=== PATIENT | male | born 1965 | race Caucasian/White ===

== ENCOUNTER 2021-09-10 22:08 | Emergency (ER) | payer OTHER, SELFPAY ==
--- NOTE | ~2021-09-10 | CT_ITS ---
EXAMINATION: CT HEAD WITHOUT CONTRAST CLINICAL INFORMATION: Trauma. COMPARISON: None TECHNIQUE: Contiguous axial imaging was performed from the skull base to vertex without intravenous administration of contrast. This CT examination was performed using dose optimization techniques as appropriate, variously including the following: *Automated exposure control *Adjustment of mA and/or kV according to patient size (this includes techniques or standardized protocols for targeted exams where dose is matched to indication/reason for exam; i.e. extremities or head) *Use of iterative reconstruction technique DLP: 690 mGy-cm FINDINGS: There is no evidence of acute intracranial hemorrhage or edematous territorial infarction. There is no abnormal attenuation within the brain parenchyma. Warner-white matter differentiation is preserved. The ventricles are normal in size and configuration. No evidence for obstructive hydrocephalus. No abnormal mass effect or midline shift. No extra-axial fluid collections. No acute soft tissue or osseous abnormalities. The mastoid air cells and paranasal sinuses are clear. CT/CT head/brain wo con IMPRESSION: No evidence of acute intracranial hemorrhage or edematous territorial infarction.
[2021-09-10 22:26] VITALS: BP 131/79; PULSE 90; RESP 16; TEMP 36.4; O2SAT 98; BMI 24.0
--- NOTE | 2021-09-10 22:31 | ED.FALL ---
HPI - Fall General Chief Complaint: Fall Stated Complaint: fell down rt ear laceration Source: patient and family Mode of arrival: ambulatory Limitations: no limitations History of Present Illness HPI Narrative: 56-year-old male presents with head injury after trip and fall. States that he hit the right side of his head and ear onto the edge of a plow. complaint: fall Onset (ago): hour(s) (Within the hour of arrival) Fall from: standing Fall witnessed: no Place fall occurred: home Loss of consciousness: none Prolonged down time: no Symptoms prior to fall: none Context: tripped/slipped Location of injury: head Severity: moderate Severity scale (1-10): 7 Quality: aching Associated symptoms (after fall): headache Related Data Previous Rx's Medication Instructions Recorded amoxicillin 875 mg-potassium 1 tab PO Q12H 7 Days #14 tab 09/11/21 clavulanate 125 mg tablet (Augmentin) Allergies Allergy/AdvReac Type Severity Reaction Status Date / Time No Known Allergies Allergy Unverified 09/10/21 22:29 Review of Systems Review of Systems: Constitutional: No Fever, No Chills ENT/Mouth: Positive right Ear Pain, No Hoarseness, No sore throat Eyes: No Eye Pain, No Swelling, No Redness, No Foreign Body Cardiovascular: No Chest Pain, No SOB Respiratory: No Cough, No Dyspnea Gastrointestinal: No Nausea, No Vomiting, No Diarrhea, No abdominal Pain Genitourinary: No Dysuria, No Hematuria Musculoskeletal: positive joint pain, No Myalgias, No Joint Swelling Skin: Positive right ear lacerations, No rash Neuro: No Weakness, No Numbness, No Paresthesias, No Loss of Consciousness, No Dizziness, positive Headache Psych: No Anxiety/Panic, No Depression Heme/Lymph: no easy bruising, no Lymphadenopathy Endocrine: No Polyuria, No Polydipsia Yes all other systems are reviewed and are negative [facility] Past Medical History Attestation statement: The following information was validated with the patient. Source: old records reviewed Social History Social History Advance Directives: No Advance Directives Information Provided: Yes Physical Exam Vital Signs: Vital Signs: Last Vital Signs Temp 97.6 F 09/10/21 22:26 Pulse 90 09/10/21 22:26 Resp 16 09/10/21 22:26 BP 131/79 09/10/21 22:26 Pulse Ox 98 09/10/21 22:26 BMI result Body Mass Index 24.0 Appearance: Alert. Oriented X3. No acute distress. Head: Normal external exam. Normocephalic. Atraumatic. No Landeros signs noted. No raccoon eyes noted Eyes: PERRLA. EOMI. Conjunctiva and sclera normal. Eyelids normal. ENT: Laceration to the right ear lobe, TM's Normal. Pharynx normal. Uvula midline. Moist mucous membranes. No trismus noted. No drooling noted. No muffled voice noted. Neck: Normal inspection. Neck supple. No adenopathy. No meningeal signs. No neck mass noted. No vertebral tenderness or step-offs. CVS: Normal heart rate and rhythm. Heart sound normal. No murmurs noted. Pulses equal to all extremities. Respiratory: No respiratory distress. Painless inspiration. Breath sounds normal. No wheezes/rales/rhonchi noted. Chest nontender. No accessory muscle usage noted or decreased air movement noted. Abdomen: Soft and nontender. Bowel sounds normal in all 4 quadrants. No distention noted. No organomegaly noted. No visible injury noted. Back: No CVA tenderness. Full range of motion noted. Skin: Skin warm and dry. Normal skin color. Normal skin turgor. No rashes/lesions/lacerations noted. Extremities: No lower extremity edema. Extremities exhibit normal range of motion. Extremities nontender. Neuro: cranial nerves 2-12 intact, no focal neural deficits, strength 5/5 to all extremities, No motor deficit. No sensory deficit. Course Course Course Narrative: 56-year-old male presents after trip and fall with head injury and right ear laceration. Will update Tdap vaccine. Cranial nerves 2-12 intact, no focal neural deficits. Patient is complaining of a headache. Will order CT scan of head. 11:41 p.m. prepped and draped in sterile fashion. Irrigated with copious amounts of normal saline. Please refer to procedure note for full details. 12:10 a.m.. Right ear continues with brisk capillary refill. CT scan negative for acute findings requiring emergent intervention. of care is to discharge with post concussive protocol. Patient verbalizes understanding of and agrees to plan of care discharge home. Procedures Laceration Laceration 1: Site: other (Right ear) Side (If applicable): right Size (cm): 6 Description: linear Depth: simple, single layer Local Anesthetic: lidocaine 2% Amount of anesthesia used (mL): 5 Pre-repair: wound explored and irrigated extensively Skin layer closed with: nylon Size (cm): 5-0 Number of sutures: 16 Technique: simple, interrupted MDM - Fall MDM Narrative Medical decision making narrative: Laceration Differential Diagnosis Differential diagnosis: Likely concussion without loss of consciousness Medical Records Attestation: I reviewed the patient's medical records. Imaging Data CT head: Attestation: I personally reviewed and interpreted this imaging study as follows: Radiologist's impression: EXAMINATION: CT HEAD WITHOUT CONTRAST CLINICAL INFORMATION: Trauma.? COMPARISON: None TECHNIQUE: Contiguous axial imaging was performed from the skull base to vertex without intravenous administration of contrast. This CT examination was performed using dose optimization techniques as appropriate, variously including the following: *Automated exposure control *Adjustment of mA and/or kV according to patient size (this includes techniques or standardized protocols for targeted exams where dose is matched to indication/reason for exam; i.e. extremities or head) *Use of iterative reconstruction technique DLP: 690 mGy-cm FINDINGS: There is no evidence of acute intracranial hemorrhage or edematous territorial infarction. There is no abnormal attenuation within the brain parenchyma. Warner-white matter differentiation is preserved. The ventricles are normal in size and configuration. No evidence for obstructive hydrocephalus. No abnormal mass effect or midline shift. No extra-axial fluid collections. No acute soft tissue or osseous abnormalities. The mastoid air cells and paranasal sinuses are clear. ? CT/CT head/brain wo con IMPRESSION: No evidence of acute intracranial hemorrhage or edematous territorial infarction. Discharge Plan Discharge Clinical Impression: Laceration of ear, complex Qualifiers: Encounter type: initial encounter Laterality: right Qualified Code(s): S01.311A - Laceration without foreign body of right ear, initial encounter Head trauma Qualifiers: Encounter type: initial encounter Qualified Code(s): S09.90XA - Unspecified injury of head, initial encounter Concussion Qualifiers: Encounter type: initial encounter Loss of consciousness presence/duration: without LOC Qualified Code(s): S06.0X0A - Concussion without loss of consciousness, initial encounter Patient Disposition: Home, Self-Care Instructions: Laceration (ED), Concussion (ED), Head Injury (ED), Post Concussion Syndrome (ED) Additional Instructions: You were evaluated for head injury with laceration to the right ear. Please follow-up with primary care physician this week as for your laceration is white extensive. We placed a 16 sutures. Please return in 7 days to have sutures removed. Please follow concussive protocol. Use Tylenol as needed for pain management. Please take Augmentin twice a day for the next 7 days. This medication is to prevent infection. We updated your Tdap vaccine today. Thank you for choosing this emergency department for evaluation. Please follow-up with primary care physician as needed. Return to the emergency department for any new, concerning, or worsening symptoms. Prescriptions: New amoxicillin-pot clavulanate [Augmentin] 875-125 mg tablet 1 tab PO Q12H 7 Days Qty: 14 RF: 0
--- NOTE | 2021-09-10 22:49 | PC.NURSE ---
Pt returns from CT. mechanical assembly technician at bedside cleaning wound to right ear. Pt medicated with Tetanus per DEC. Awaiting CT results.
[2021-09-10] MEDS: Diphth,Pertus(ACell),Tet Adult 0.5 ML SYRINGE IM (22:50)
[2021-09-10] MEDS: Lidocaine HCl 2 % MPF 5 ML VIAL SUBCUT (23:15)
--- NOTE | 2021-09-10 23:46 | PC.NURSE ---
CRIMINAL JUSTICE INSTRUCTOR and organic preparation technician at bedside for wound repair.
[2021-09-11] MEDS: Amoxicillin/Potassium Clav 875 MG TABLET PO (00:17)
== END 2021-09-11 00:21 | disposition home or self-care (01) ==
PROVIDERS: Emergency Provider Emergency Medicine; PCP Internal Medicine
DX: S01.311A Laceration without foreign body of right ear, initial encounter (principal); S06.0X0A Concussion without loss of consciousness, initial encounter; W01.0XXA Fall on same level from slipping, tripping and stumbling without subsequent striking against object, initial encounter; Y93.9 Activity, unspecified; Y92.009 Unspecified place in unspecified non-institutional (private) residence as the place of occurrence of the external cause; Y99.9 Unspecified external cause status
CPT/HCPCS: 12014; 70450; 90471; 90715; 99283; 99284

== ENCOUNTER 2024-05-07 12:07 | Emergency (ER) | payer OTHER, SELFPAY ==
--- NOTE | ~2024-05-07 | XR_ITS ---
EXAMINATION: XR KNEE, LEFT CLINICAL INFORMATION: Left knee pain and swelling COMPARISON: None available. TECHNIQUE: Four views of the left knee. FINDINGS: BONES: Chronic healed distal left femoral shaft fracture with marked posterior medial bulging cortical thickening, internal fixation with lateral L shaped metallic plate and multiple cortical screws is seen. Left patellar articular border osteophytosis is present. There is no focal bone destruction or periosteal reaction seen. JOINTS: Alignment of joints is normal. There is marked decrease in medial compartment left tibiofemoral joint space. SOFT TISSUE: Left suprapatellar fat pad shows bulging increase in density. Left lateral meniscal chondrocalcinosis is seen. No radiopaque foreign body or abnormal air collection is seen. XR/XR knee LT 4V IMPRESSION: 1. Chronic healed distal left femoral shaft fracture with internal fixation. 2. Advanced Left patellofemoral and medial compartment and left patellofemoral joint osteoarthritis. 3. Left lateral meniscal chondrocalcinosis, compatible with advanced arthritis, hyperparathyroidism or calcium pyrophosphate deposition disease (pseudogout). 4. Left knee effusion is present.
[2024-05-07 13:08] VITALS: BP 165/89; PULSE 87; RESP 16; TEMP 37; O2SAT 98; BMI 24.0
--- NOTE | 2024-05-07 13:10 | ED.EXTPRO ---
HPI - Extremity Problem General Chief complaint: Extremity Problem Stated complaint: Swelling L knee Time Seen by Provider: 05/07/24 17:37 Source: patient Mode of arrival: ambulatory Limitations: no limitations History of Present Illness ED Provider: Elvia BA HPI Narrative: 58-year-old male presents with chronic left knee swelling acutely worsening over the past few days, he reports that he has had intermittent swelling for years this started after a bad accident, he is seen by [facility] however he is unable to get into see them until May, he reports that typically they drain his knee and place a cortisone shot and he is hoping that we could do the same here. Denies fevers, chills, numbness, tingling, blunt trauma, nausea, vomiting, abdominal pain. Related Data Previous Rx's ?Medication ?Instructions ?Recorded amoxicillin 875 mg-potassium 1 tab PO Q12H 7 days #14 tabs 09/11/21 clavulanate 125 mg tablet (Augmentin) ketorolac 10 mg tablet 10 mg PO TID PRN pain 5 days #15 05/07/24 tabs Allergies Allergy/AdvReac Type Severity Reaction Status Date / Time No Known Allergies Allergy Verified 05/07/24 13:11 Review of Systems Review of Systems: Yes all other systems are reviewed and are negative PMFSH Past Medical History Attestation statement: The following information was validated with the patient. Source: old records reviewed and nursing notes reviewed Social History Social History Advance Directives: No Advance Directives Information Provided: No Physical Exam Vital Signs: Vital Signs: Last Vital Signs Temp 98.6 F 05/07/24 13:08 Pulse 87 05/07/24 13:08 Resp 16 05/07/24 13:08 BP 165/89 H 05/07/24 13:08 Pulse Ox 98 05/07/24 13:08 O2 Del Method Room Air 05/07/24 13:08 BMI result Body Mass Index 24.0 vss Appearance: Alert.? Oriented X3.? No acute distress.? Head: Normocephalic, atraumatic, no step-offs or deformities Eyes: Pupils equal, round and reactive to light.? ENT: Pharynx normal.? Neck: Normal inspection.? Neck supple.? CVS: Normal heart rate and rhythm.? Pulses normal.? Respiratory: No respiratory distress.? Breath sounds normal.? Abdomen: Soft and nontender.? Skin: Skin warm and dry.? Normal skin color.? Normal skin turgor.? Extremities: No lower extremity edema.? No calf ttp. 5/5 strength to bilateral upper and lower extremities + large L sided effusion overlying knee. 2+ dp,at,pt, popliteal pulses equal and b/l. Normal sensation distally. Neuro: Oriented X 3.? No motor deficit.? No sensory deficit. CN 2-12 intact Course Course Course Narrative: This is a Rapid Medical Examination (RME) performed by Adrian Shrestha PA-C in triage. Full HPI, ROS, assessment and treatment plan per primary provider in the Main ED. 58 yo male with history of left knee osteoarthritis in need of replacement (followed at [facility]) who presents to the ER for evaluation of acute on chronic left knee pain and swelling. Reports history of multiple arthocentesis in the past and cortisone injections, last was about 2 years ago. Left knee with significant swelling. Ambulatory w/ antalgic gait. Plan: XR knee Reevaluation(s) Reevaluation #1: Arthrocentesis was performed at the bedside by this JESENIA w/ supervision Dr. Henriquez, area was cleansed well with iodine, allowed to dry, a superior lateral approach was used for arthrocentesis, I did anesthetize the area with 1% lidocaine and, patient tolerated procedure well there was a total of 135 cc of straw-colored fluid. pressure applied after the procedure. No complicaitons. Blood loss <5 cc. No pain after patient feeling better. Frandy wrap applied for compression. Plan- follow up with [facility] Knee joint fluid sent for analysis Time: 18:40 Medical Decision Making Medical Decision Making [facility] Narrative: 1805 58 year old male presents w/ left knee pain and swelling for years worsening over the past few days. PE No lower extremity edema.? No calf ttp. 5/5 strength to bilateral upper and lower extremities + large L sided effusion overlying knee. 2+ dp,at,pt, popliteal pulses equal and b/l. Normal sensation distally. History and physical exam concerning for chronic left knee effusion acutely worsening this could be a gouty arthritis versus inflammatory arthritis. Unlikely traumatic bursitis, septic joint, no signs of neurovascular compromise or threat to limb. Plan imaging and arthrocentesis Differential Diagnosis Differential Diagnoses: The differential diagnosis associated with the presentation includes History and physical exam concerning for chronic left knee effusion acutely worsening this could be a gouty arthritis versus inflammatory arthritis. Unlikely traumatic bursitis, septic joint, no signs of neurovascular compromise or threat to limb. Admission/Observation Consideration of admission/observation: Escalation of care including admission/observation considered Possible Consult Healthcare Provider Management of the patient was discussed with: Air Brush Operator (Ortho ) Independent Interpretation I performed an independent interpretation of an: Plain X-Ray Procedures Joint Aspiration/Injection Joint Asp./Inject. 1: Time Out Performed: Yes Side of body: left Joint Aspirated: knee Ultrasound Guidance: No Skin Prep: Povidone-Iodine1% Local Anesthetic: lidocaine 1% Amount of anesthesia used (mL): 15 Needle Size Used: 18G Fluid Obtained: clear (straw ) Total fluid obtained (mL): 135 Patient Tolerated Procedure: well Complications: none Critical Care Time Critical Care Time Critical Care Time: Yes Total Critical Care Time: 35 Attestation: I attest to this time spent taking care of the patient, obtaining history, physical, reviewing labs, imaging, speaking to my attending, specialist or hospitalist. Discharge Plan Discharge Clinical Impression: Effusion, left knee Patient Disposition: Home, Self-Care Instructions: Swollen Knee Joint (ED), Swollen Joint (ED), Joint Aspiration (DC) Additional Instructions: Take your medications as prescribed. If you were prescribed antibiotics today, it is important that you take your medication to their entirety, do not skip any doses, do not finish them early. Follow-up with your primary care provider this week. Return to the emergency department with new or worsening symptoms. Such as fevers, chills, chest pain, shortness of breath, nausea, vomiting, dizziness, headache, vision changes, lethargy In case of emergency call 911 Toradol has been sent to your pharmacy, you tolerated this well in the department. Please take this as prescribed do not take this with ibuprofen, or other NSAIDs, do not mix this with alcohol. Side effects of this medication including increased risk for bleeding and possible kidney injury. Please call [facility] tomorrow to schedule an appointment as soon as possible. Prescriptions: New ketorolac 10 mg tablet 10 mg PO TID PRN (Reason: pain) 5 Days Qty: 15 0RF No Action amoxicillin-pot clavulanate [Augmentin] 875-125 mg tablet 1 tab PO Q12H 7 Days Qty: 14 0RF Referrals: Lindsay Galo MD [Primary Care Provider] - 2 days Stand Alone Forms: Work/School Release Print Language: South [place]
[2024-05-07] MEDS: Lidocaine HCl 1 % 20 ML VIAL SUBCUT (18:15)
[2024-05-07] MEDS: Ketorolac Tromethamine 30 MG/ML VIAL IM (18:37)
[2024-05-07] MEDS: Acetaminophen 325 MG TABLET 650 MG PO (18:55)
[2024-05-07 18:57] VITALS: BP 135/84; PULSE 83; RESP 20; TEMP 37.3; O2SAT 97
[2024-05-07 18:58] LABS: Source Synovial Fluid L knee
[2024-05-07 19:01] VITALS: BP 135/84; PULSE 83; RESP 18; TEMP 37.3; O2SAT 97
[2024-05-07 19:26] LABS: MN% 8.2 %; PMN% 91.8 %
[2024-05-07 19:36] LABS: BF Shift QC OK YES; Lymphocytes Synovial Fluid 5 %; Man Diluent Bkgrd OK YES; Monocytes Synovial Fluid 4 %; Neutrophils Synovial Fluid 91 %
[2024-05-09 15:25] LABS: Glucose Synovial Fluid 4
[2024-05-09 15:27] LABS: Total Protein Synovial Fluid 4.2
== END 2024-05-07 19:02 | disposition home or self-care (01) ==
PROVIDERS: Physician Assistant; Emergency Provider Emergency Medicine; PCP Internal Medicine
DX: M25.462 Effusion, left knee (principal); M25.562 Pain in left knee; Z79.899 Other long term (current) drug therapy
CPT/HCPCS: 20610; 73564; 82945; 84157; 87070; 87073; 87205; 89051; 89060; 96372; 99284; J1885

== ENCOUNTER 2024-08-01 05:32 | Emergency (ER) | payer OTHER, SELFPAY ==
--- NOTE | ~2024-08-01 | XR_ITS ---
EXAMINATION: XR CHEST CLINICAL INFORMATION: Cough. COMPARISON: None available. TECHNIQUE: Frontal view of the chest was obtained. FINDINGS: The cardiomediastinal silhouette is normal. There is no focal lung consolidation or pleural effusions. The bony structures and the soft tissues are unremarkable XR/XR chest 1V IMPRESSION: No acute cardiopulmonary process. Electronically signed by: Fish Chávez MD 08/01/2024 06:18 AM EDT RP
[2024-08-01 05:38] VITALS: BP 146/83; PULSE 91; RESP 15; TEMP 36.5; O2SAT 98; BMI 24.4
--- NOTE | 2024-08-01 05:54 | PC.NURSE ---
pt ambulated from waiting room with steady gait. pt aox4, vss, respirations even and unlabored. Pt reports acute onset of upper right back pain with radiating 'aching' down right arm x 1day. pt reports mowing his lawn yesterday with onset of pain shortly after. pt unable to perform shoulder ROM movements at this time d/t pain. pt reports pain with neck flexion and extension. pt at bedside.
[2024-08-01 06:30] LABS: MANUAL DIFF FLAG NO
[2024-08-01 06:35] LABS: Basophils Absolute Auto 0.1 X10*3/uL (0.0-0.2); Basophils Percent Auto 0.8 % (0-2); Eosinophils Absolute Auto 0.2 X10*3/uL (0.0-0.4); Hematocrit 41.1 % (42.0-52.0); Hemoglobin 14.6 g/dl (14.0-18.0); Imm Gran Abs Auto 0.02 X10*3/uL (0.00-0.03); Imm Gran Pct Auto 0.3 % (0.0-0.4); Lymphocytes Absolute Auto 1.5 X10*3/uL (1.2-4.9); Lymphocytes Percent Auto 19.8 % (20-40); Mean Corpuscular HGB Conc 35.5 g/dl (31.0-36.0); Mean Corpuscular Hemoglobin 30.5 pg (27.0-33.0); Mean Corpuscular Volume 85.8 fL (80.0-98.0); Mean Platelet Volume 10.1 fL (9.4-12.4); Monocytes Absolute Auto 0.7 X10*3/uL (0.1-1.2); Monocytes Percent Auto 9.6 % (2-11); Neutrophils Absolute Auto 5.2 x10*3/uL (2.0-8.3); Neutrophils Percent Auto 67.5 % (45-73); Platelet Count 165 X10*3/uL (160-400); Red Blood Count 4.79 X10*6/uL (4.60-5.80); Red Cell Distribution Width 12.1 % (11.0-16.0); White Blood Count 7.7 X10*3/uL (4.8-10.8)
--- NOTE | 2024-08-01 06:47 | ECG_ITS ---
Test Reason : BACK PAIN Blood Pressure : / mmHG Vent. Rate : 082 BPM Atrial Rate : 082 BPM P-R Int : 154 ms QRS Dur : 098 ms QT Int : 406 ms P-R-T Axes : 048 -37 031 degrees QTc Int : 474 ms Normal sinus rhythm Left axis deviation Possible Anterior infarct , age undetermined Abnormal ECG No previous ECGs available Referred By: Patsy Coreas Electronically Signed By:Qamar Urbina
[2024-08-01 06:51] VITALS: BP 145/84; PULSE 86; RESP 16; O2SAT 97
--- NOTE | 2024-08-01 06:51 | ED_ITS ---
HPI - General Adult General Chief complaint: General Medical Stated complaint: Back pain Time Seen by Provider: 08/01/24 06:32 Source: patient, RN notes reviewed and old records reviewed Mode of arrival: ambulatory History of Present Illness ED Provider: Patsy Coreas PA-C HPI narrative: 59-year-old male with no significant past medical history presenting to the ED complaining of right upper back/scapular pain radiating to right neck and RUE since yesterday. 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 Admits to taking p.o. ibuprofen and heat at home last night without relief. Also reports URI x few days with dry cough, cough exacerbating symptoms at present. Denies fever, chills, numbness, tingling, weakness, SOB, CP Related Data Previous Rx's ?Medication ?Instructions ?Recorded amoxicillin 875 mg-potassium 1 tab PO Q12H 7 days #14 tabs 09/11/21 clavulanate 125 mg tablet (Augmentin) ketorolac 10 mg tablet 10 mg PO TID PRN pain 5 days #15 05/07/24 tabs prednisone 50 mg tablet 50 mg PO DAILY 5 days #5 tabs 05/07/24 acetaminophen 500 mg tablet 500 mg PO Q6H PRN fever or pain 08/01/24 (Tylenol Extra Strength) #14 tabs cyclobenzaprine 10 mg tablet 10 mg PO TID PRN muscle spasm #14 08/01/24 tabs lidocaine 5 % topical patch 1 patch topical DAILY PRN pain #30 08/01/24 (Lidoderm) ea morphine 15 mg immediate release 15 mg PO Q6H PRN pain (scale score 08/01/24 tablet 7-10) 3 days #9 tabs naproxen 500 mg tablet 500 mg PO BID PRN pain 10 days #20 08/01/24 tabs Allergies Allergy/AdvReac Type Severity Reaction Status Date / Time No Known Allergies Allergy Verified 08/01/24 05:43 Review of Systems 2 Review of Systems: Yes all other systems are reviewed and are negative Constitutional: Constitutional: Reports as per [facility] Past Medical History Attestation statement: The following information was validated with the patient. Source: old records reviewed Social History Social History Alcohol intake: current Alcohol intake frequency: 0-2 drinks per day Alcohol type: beer Smoked in Last 30 Days: Yes Use of substances other than those prescribed or required for medical reasons: No Advance Directives: No Advance Directives Information Provided: Yes Physical Exam ED Vital Signs: Vital Signs - 24 hr 08/01/24 05:38 08/01/24 06:51 Temperature 97.7 F Pulse Rate 91 86 Respiratory Rate 15 16 Blood Pressure 146/83 H 145/84 H Pulse Oximetry 98 97 Oxygen Delivery Method Room Air Room Air BMI result Body Mass Index 24.4 Const General: cooperative, healthy appearing and no acute distress Orientation/consciousness: patient oriented x3 Limitations: no limitations HENMT Head: Yes normal to inspection and Yes atraumatic Ears: hearing grossly normal bilaterally General nose exam: Normal external nose present Face and sinus: Yes normal facial exam Eyes General: appearance normal, both eyes and all related structures EOM: EOMs intact bilaterally Neck Other: Neck ROM limited secondary to pain Neck: Yes normal visual inspection, Yes no meningeal signs and No anterior neck swelling Resp Effort & Inspection: normal respiratory effort and no respiratory distress Auscultation: clear to auscultation bilaterally Cardio Rate: regular rate Heart sounds: S1 normal heart sound present and S2 normal heart sound present Peripheral pulses: Peripheral pulses 2+ throughout Back/Spine/Pelvis Other: No midline cervical/thoracic/lumbar spinous tenderness/step-off or deformity. + right scapular/trapezius muscle swelling/spasming and tenderness to palpation. No rash/erythema. Limited ROM to right shoulder secondary to pain/spasming. NV intact distally. Skin Rashes: no rashes Wounds: no wounds Neuro General: patient oriented x3, tone normal, moves all extremities and no meningeal signs Cranial nerves: Yes CN's II-XII intact bilaterally Gait exam (Neuro): Normal gait present Extrem General: Yes normal to inspection Course Course Course Narrative: -labs reassuring. Viral studies negative. CXR unremarkable -[id number]--patient reports symptomatic improvement after p.o. Flexeril, Lidoderm patch, Toradol, and p.o. morphine. Range of motion has improved. Patient feels comfortable for discharge home at this time Results discussed with patient including worrisome signs and symptoms and strict return precautions, and when to return to the emergency department. They verbalized understanding and feel safe for discharge at this time. Medications Administered Discontinued Medications Generic Name Dose Route Start Last Admin Trade Name Bella PRN Reason Stop Dose Admin Cyclobenzaprine HCl 10 mg 08/01/24 06:47 08/01/24 07:15 Cyclobenzaprine Hcl 10 Mg Tablet PO 08/01/24 06:48 10 mg ONCE ONE Administration Ketorolac Tromethamine 30 mg 08/01/24 06:47 08/01/24 07:13 Ketorolac Tromethamine 30 Mg/Ml Vial IM 08/01/24 06:48 30 mg ONCE ONE Administration Lidocaine 1 patch 08/01/24 06:47 08/01/24 07:18 Lidocaine 4 % Patch Adh..Patch TRANSDERMA 08/01/24 06:48 1 patch ONCE ONE Administration Protocol Morphine Sulfate 15 mg 08/01/24 08:23 08/01/24 08:46 Morphine Sulfate Immed Release 15 Mg Tablet PO 08/01/24 08:24 15 mg ONCE ONE Administration Medical Decision Making Medical Decision Making MDM Narrative: 59-year-old male with no significant past medical history presenting to the ED complaining of right upper back/scapular pain radiating to right neck and RUE since yesterday. On exam vital signs stable, NAD, nontoxic appearing, appears uncomfortable/in pain. Physical exam as noted above. No midline spinous tenderness or red flag symptoms. Concern for muscle spasm vs strain. Rule out PTX vs pneumonia. Lower suspicion for atypical ACS, PE. Plan: EKG, labs ordered previously, CXR, pain control, re-evaluate Please refer to course for remaining clinical decision making, interpretation of labs/imaging results, and discussions with consultants and/or family members. Differential Diagnosis Differential Diagnoses: The differential diagnosis associated with the presentation includes As above Admission/Observation Consideration of admission/observation: Escalation of care including admission/observation considered Lab Data [facility] Lab Attestation statement: I reviewed the patient's lab results. 08/01/24 06:10 08/01/24 06:10 Labs: Lab Results 08/01/24 Range/Units 06:10 WBC 7.7 (4.8-10.8) X10*3/uL RBC 4.79 (4.60-5.80) X10*6/uL Hgb 14.6 (14.0-18.0) g/dl Hct 41.1 L (42.0-52.0) % MCV 85.8 (80.0-98.0) fL MCH 30.5 (27.0-33.0) pg MCHC 35.5 (31.0-36.0) g/dl RDW 12.1 (11.0-16.0) % Plt Count 165 (160-400) X10*3/uL MPV 10.1 (9.4-12.4) fL Immature Gran % (Auto) 0.3 (0.0-0.4) % Neut % (Auto) 67.5 (45-73) % Lymph % (Auto) 19.8 L (20-40) % [place] % (Auto) 9.6 (2-11) % Eos % (Auto) 2.0 (0-4) % Baso % (Auto) 0.8 (0-2) % Lymph # (Auto) 1.5 (1.2-4.9) X10*3/uL [place] # (Auto) 0.7 (0.1-1.2) X10*3/uL Eos # (Auto) 0.2 (0.0-0.4) X10*3/uL Baso # (Auto) 0.1 (0.0-0.2) X10*3/uL Abs Immat Gran (auto) 0.02 (0.00-0.03) X10*3/uL Absolute Neuts (auto) 5.2 (2.0-8.3) x10*3/uL Absolute Nucleated RBC 0.000 (0.0-0.012) X10*3/uL Nucleated RBC % (auto) 0.0 (0.0-0.2) /100WBC Sodium 138 (135-145) mmol/L Potassium 3.9 (3.3-5.1) mmol/L Chloride 105 (96-108) mmol/L Carbon Dioxide 23 (22-29) mmol/L Anion Gap 14 (12-20) BUN 8 L (9-16) mg/dL Creatinine 0.70 (0.5-1.4) mg/dL Estim Creat Clear Calc 119.5 Estimated GFR > 60 Random Glucose 93 (60-115) mg/dL Calcium 9.3 (8.4-10.2) mg/dL Total Bilirubin 1.0 (0.0-1.0) mg/dL AST 27 (5-37) U/L ALT 25 (0-40) U/L Alkaline Phosphatase 82 (39-117) U/L Total Protein 7.0 (6.5-8.0) g/dL Albumin 4.2 (3.5-5.0) g/dL Influenza Type A (PCR) NEGATIVE (Negative) Influenza Type B (PCR) NEGATIVE (Negative) RSV RNA Qual (PCR) NEGATIVE (Negative) SARS-CoV-2 RNA (RT-PCR) NEGATIVE (Negative) Independent Interpretation I performed an independent interpretation of an: EKG and Plain X-Ray Radiology Impression Discussion of test interpretation with radiology: I have reviewed the radiologist's reading. Independent Historian Clinical information obtained from an independent historian. History obtained from or confirmed by: Spouse External Record Review External record reviewed: Inpatient record, Office record, Outpatient record, Prior outpatient labs, Prior outpatient radiology, Primary care record and Outside ED record Tests considered The following testing was considered but not selected: As above Prescription Management I considered prescription management with: Pain Medication Chronic Conditions Patient?s care impacted by: Other Social Determinants Patient?s care significantly limited by Social Determinants of Health including: Other Social Determinant of Health Discharge Plan Discharge Clinical Impression: Muscle spasm Patient Disposition: Home, Self-Care Instructions: Muscle Spasm (ED) Additional Instructions: Your pain is likely musculoskeletal Your blood work, viral testing, and x-ray were reassuring Flexeril is a muscle relaxer, take at night as it makes you drowsy, do not drive, drink alcohol, or operate machinery while taking it Naproxen as an anti-inflammatory / pain medication, take with food Lidoderm patches are numbing patches, apply to painful area Morphine as an opiate pain medication, take only when pain is severe for the next 3 days. In addition take Tylenol at home If symptoms persist or worsen, pain becomes unbearable, you developed urinary retention or incontinence, or weakness return to the ED Prescriptions: New cyclobenzaprine 10 mg tablet 10 mg PO TID PRN (Reason: muscle spasm) Qty: 14 0RF morphine 15 mg tablet 15 mg PO Q6H PRN (Reason: pain (scale score 7-10)) 3 Days Qty: 9 0RF Rx Instructions: Partial Fill upon patient request. acetaminophen [Tylenol Extra Strength] 500 mg tablet 500 mg PO Q6H PRN (Reason: fever or pain) Qty: 14 0RF naproxen 500 mg tablet 500 mg PO BID PRN (Reason: pain) 10 Days Qty: 20 0RF lidocaine [Lidoderm] 5 % adhesive patch,medicated 1 patch topical DAILY MDD remove after 12 hours PRN (Reason: pain) Qty: 30 0RF Rx Instructions: leave on most painful area for up to 12 hrs No Action amoxicillin-pot clavulanate [Augmentin] 875-125 mg tablet 1 tab PO Q12H 7 Days Qty: 14 0RF ketorolac 10 mg tablet 10 mg PO TID PRN (Reason: pain) 5 Days Qty: 15 0RF prednisone 50 mg tablet 50 mg PO DAILY 5 Days Qty: 5 0RF Referrals: Lindsay Galo MD [Primary Care Provider] - 3 days Interventions: ED Discharge Assessment Last Done: 08/01/24 10:00 Discharge Date/Time: 08/01/24 10:01 Print Language: French
[2024-08-01 06:57] LABS: Alanine Aminotransferase 25 U/L (0-40); Albumin Level 4.2 g/dL (3.5-5.0); Alkaline Phosphatase 82 U/L (39-117); Anion Gap 14 (12-20); Aspartate Amino Transferase 27 U/L (5-37); Blood Urea Nitrogen 8 mg/dL (9-16); Calcium 9.3 mg/dL (8.4-10.2); Carbon Dioxide 23 mmol/L (22-29); Chloride 105 mmol/L (96-108); Creatinine Clr Calc Pharmacy 119.5; Estimated Glomerular Filt Rate > 60; Glucose Random 93 mg/dL (60-115); Potassium 3.9 mmol/L (3.3-5.1); Sodium 138 mmol/L (135-145)
[2024-08-01 07:09] LABS: Influenza A PCR NEGATIVE (Negative); Influenza B PCR NEGATIVE (Negative); Resp Syncy Virus RNA Qual PCR NEGATIVE (Negative); SARS COV2 PCR INHOUSE NEGATIVE (Negative)
[2024-08-01] MEDS: Ketorolac Tromethamine 30 MG/ML VIAL IM (07:13)
[2024-08-01] MEDS: Cyclobenzaprine HCl 10 MG TABLET PO (07:15)
[2024-08-01] MEDS: Lidocaine 4 % Patch ADH..PATCH 1 PATCH TRANSDERMA (07:18)
[2024-08-01] MEDS: Morphine Sulfate Immed Release 15 MG TABLET PO (08:46)
[2024-08-01 10:00] VITALS: BP 160/96; PULSE 92; RESP 16; TEMP 36.6; O2SAT 95
== END 2024-08-01 10:01 | disposition home or self-care (01) ==
PROVIDERS: Emergency Provider Emergency Medicine; PCP Internal Medicine
DX: M62.830 Muscle spasm of back (principal); M54.50 Low back pain, unspecified; M54.2 Cervicalgia; R94.31 Abnormal electrocardiogram [ECG] [EKG]; Z03.818 Encounter for observation for suspected exposure to other biological agents ruled out; Z79.899 Other long term (current) drug therapy
CPT/HCPCS: 0241U; 71045; 80053; 85025; 93005; 96372; 99285; J1885

== ENCOUNTER → 2024-08-01 06:47 | Outpatient (BNV) | payer OTHER, SELFPAY | PROVIDERS: Emergency Provider Emergency Medicine; PCP Internal Medicine; Visit Provider Internal Medicine Cardiovascular Disease | DX: R94.31 Abnormal electrocardiogram [ECG] [EKG] (principal); M54.9 Dorsalgia, unspecified | CPT/HCPCS: 93010 ==